=== PATIENT | male | born 1990 | race Caucasian/White ===

== ENCOUNTER 2017-11-06 14:15 | Emergency (ER) | payer OTHER ==
[2017-11-06] MEDS ORDERED: NS 0.9% 1000 ML* 1,000 ML IV ONE (14:34)
--- NOTE | 2017-11-06 14:38 | ED ---
Abdominal Pain/Male - HPI Summary HPI Summary: This is jacob Matos documenting for attending Dr. David Aldrich MD. Constipation and AOB 2 monts Has been diarrhea XR at Eating and drink everyday small smouints Nausea and vomiting Every time diarrhea for last week brown water yesterday No blood no mucous Keeps hydrated on lithium? No fevers no chills Abdominal pain yes Straying everytime go to bathroom No medical history Hand surgry Quite smoke I 8-9month Occasional drugs No etoh in a while Fhx depression Bipolar disorder, psy stuff Never been in hospital for besides psy stuff PTSD Pt says he has been constipated for 2 months and the last few days it has affected his breathing, pt referred to ED by Dieudonne rouse. 06/19 - History of Current Complaint Chief Complaint: EDShortnessOfBreath Stated Complaint: BOWEL ISSUE Time Seen by Provider: 11/06/17 14:30 Pain Intensity: 3 - Allergies/Home Medications Allergies/Adverse Reactions: Allergies Allergy/AdvReac Type Severity Reaction Status Date / Time No Known Allergies Allergy Verified 11/06/17 14:24 Home Medications: Home Medications Docusate Sodium [Colace] 100 mg PO TID 11/06/17 [History Confirmed 11/06/17] [place] Carbonate [[place] Carbonate 600 mg cap] 1,200 mg PO DAILY 11/06/17 [ History Confirmed 11/06/17] Sennosides [Ex-Lax Maximum Strength] 25 mg PO DAILY PRN 11/06/17 [History Confirmed 11/06/17] lamoTRIgine [Lamictal] 150 mg PO DAILY 11/06/17 [History Confirmed 11/06/17] PMH/Surg Hx/FS Hx/Imm Hx Infectious Disease History: No Infectious Disease History: Denies: Traveled Outside the [place] in Last 30 Days Physical Exam - Summary Physical Exam Summary: VITAL SIGNS: Reviewed. GENERAL: Patient is a well-developed and nourished male who is lying comfortable in the stretcher. Patient is not in any acute respiratory distress. HEAD AND FACE: Normocephalic and atraumatic. EYES: PERRLA, EOMI x 2, No injected conjunctiva. EARS: Hearing grossly intact. Ear canals and tympanic membranes are WNL. MOUTH: Oropharynx within normal limits. NECK: Supple, trachea is midline, no adenopathy, no JVD. CHEST: Symmetric, no tenderness at palpation LUNGS: Clear to auscultation bilaterally. No wheezing or crackles. CVS: RRR, S1 and S2 present, no murmurs or gallops appreciated. ABDOMEN: Abdomen is soft and non-tender. Abdomen is distended. Positive bowel sounds. No rebound no guarding, and no masses palpated. No abdominal bruit or pulsations. EXTREMITIES: FROM in all major joints, no edema, no cyanosis or clubbing. NEURO: Alert and oriented x 3. No acute neurological deficits. Speech is normal. SKIN: Dry and warm Triage Information Reviewed: Yes Vital Signs On Initial Exam: Initial Vitals Temp Pulse Resp BP Pulse Ox 98.6 F 68 14 149/98 100 11/06/17 14:21 11/06/17 14:21 11/06/17 14:21 11/06/17 14:21 11/06/17 14:21 Vital Signs Reviewed: Yes Diagnostics - Vital Signs Vital Signs Temp Pulse Resp BP Pulse Ox 11/06/17 14:21 98.6 F 68 14 149/98 100 - Laboratory Lab Statement: Any lab studies that have been ordered have been reviewed, and results considered in the medical decision making process.
--- NOTE | 2017-11-06 14:48 | ED ---
Shortness of Breath - HPI Summary HPI Summary: This is jacob Matos documenting for attending Dr. David Aldrich MD. A 26 y/o male presents to ED c/o constipation and SOB reaching 3/10 in severity. Additionally c/o diarrhea. According to the patient, he has been having slight constipation for the past two months, however, the last few days it has been making it difficult to breathe. He was referred to ED by (XR done at ). Patient denies any nausea, vomiting, fever, chills, however has had mild abdominal pain and diarrhea. He has had diarrhea for the past week which has no blood or mucous, however, yesterday, this stool was brown water. He noted that he keeps hydrated every day and eats in small amounts. Currently on [place]. No medical history except for hospitalization for psychiatric issues. PMHx of biopolar disorder, PTSD, and hand surgery. FHx of depression. SHx of occasional drugs, no ETOH and quit smoking 8-9 months ago. - History of Current Complaint Chief Complaint: EDShortnessOfBreath Time Seen by Provider: 11/06/17 14:30 Hx Obtained From: Patient Onset/Duration: Sudden Onset, Still Present Current Severity: Mild - 3/10 Aggrevating Factors: Nothing Alleviating Factors: Nothing Associated Signs & Symptoms: Negative - Allergy/Home Medications Allergies/Adverse Reactions: Allergies Allergy/AdvReac Type Severity Reaction Status Date / Time No Known Allergies Allergy Verified 11/06/17 14:24 Home Medications: Home Medications Docusate Sodium [Colace] 100 mg PO TID 11/06/17 [History Confirmed 11/06/17] [place] Carbonate [[place] Carbonate 600 mg cap] 1,200 mg PO DAILY 11/06/17 [ History Confirmed 11/06/17] Sennosides [Ex-Lax Maximum Strength] 25 mg PO DAILY PRN 11/06/17 [History Confirmed 11/06/17] lamoTRIgine [Lamictal] 150 mg PO DAILY 11/06/17 [History Confirmed 11/06/17] PMH/Surg Hx/FS Hx/Imm Hx Endocrine/Hematology History: Denies: Hx Diabetes Cardiovascular History: Denies: Hx Hypertension Psychiatric History: Reports: Hx Panic Disorder - RESOLVED, Hx Post Traumatic Stress Disorder, Hx Bipolar Disorder Infectious Disease History: No Infectious Disease History: Denies: Traveled Outside the [place] in Last 30 Days - Family History Known Family History: Positive: Other - Depression (father), alcoholism (mother and father). - Social History Alcohol Use: None Substance Use Type: Reports: Marijuana - Occasionally., Prescribed Smoking Status (MU): Never Smoked Tobacco Review of Systems Negative: Fever, Chills Positive: Shortness Of Breath Positive: Abdominal Pain - Mild, Diarrhea, Other - POSITIVE: Constipation. Negative: Vomiting, Nausea All Other Systems Reviewed And Are Negative: Yes Physical Exam - Summary Physical Exam Summary: VITAL SIGNS: Reviewed. GENERAL: Patient is a well-developed and nourished male who is lying comfortable in the stretcher. Patient is not in any acute respiratory distress. HEAD AND FACE: Normocephalic and atraumatic. EYES: PERRLA, EOMI x 2, No injected conjunctiva. EARS: Hearing grossly intact. Ear canals and tympanic membranes are WNL. MOUTH: Oropharynx within normal limits. NECK: Supple, trachea is midline, no adenopathy, no JVD. CHEST: Symmetric, no tenderness at palpation LUNGS: Clear to auscultation bilaterally. No wheezing or crackles. CVS: RRR, S1 and S2 present, no murmurs or gallops appreciated. ABDOMEN: Abdomen is soft and non-tender. Abdomen is distended. Positive bowel sounds. No rebound no guarding, and no masses palpated. No abdominal bruit or pulsations. EXTREMITIES: FROM in all major joints, no edema, no cyanosis or clubbing. NEURO: Alert and oriented x 3. No acute neurological deficits. Speech is normal. SKIN: Dry and warm Triage Information Reviewed: Yes Vital Signs On Initial Exam: Initial Vitals Temp Pulse Resp BP Pulse Ox 98.6 F 68 14 149/98 100 11/06/17 14:21 11/06/17 14:21 11/06/17 14:21 11/06/17 14:21 11/06/17 14:21 Vital Signs Reviewed: Yes Diagnostics - Vital Signs Vital Signs Temp Pulse Resp BP Pulse Ox 11/06/17 14:35 153/97 11/06/17 14:21 98.6 F 68 14 149/98 100 - Laboratory Result Diagrams: 11/06/17 14:49 11/06/17 14:49 Lab Statement: Any lab studies that have been ordered have been reviewed, and results considered in the medical decision making process. - CT CT A/P CT Interpretation Completed By: Radiologist - MILD GASEOUS DISTENTION. NO OBSTRUCTION. NO MASS OR INFLAMMATORY CHANGES. ED PHYSICIAN REVIEWED THIS RADIOLOGY REPORT. Course/Dx - Course Assessment/Plan: This patient is a 26-year-old male who was transferred from the [address] [place] [address] urgent care. With a chief complaint of intermittent diarrhea and constipation. The patient has been having the symptoms for approximately a month. Patient denies any abdominal pain. Patient reports that occasionally he has shortness of breath. Test results without any significant abnormality. Abdominopelvic CT impression: mild gaseous distention. No obstruction. No mass or inflammatory changes. Since the patient has remained asymptomatic. The patient was hydrated with IV fluids at this point the patient was discharged home with follow-up with primary care physician. Patient was advised to use the BRAT diet. Patient was instructed to return to the emergency department if she develops any pain, nausea vomiting or any other symptoms. - Diagnoses Provider Diagnoses: Abdominal discomfort, Diarrhea Discharge - Sign-Out/Discharge Documenting (check all that apply): Patient Departure - DISCHARGE - Discharge Plan Condition: Stable Disposition: HOME Patient Education Materials: Constipation (ED), Abdominal Pain (ED) Referrals: No Primary Care Phys,NOPCP [Primary Care Provider] - [facility] [Outside] - 1 Week Additional Instructions: FOLLOW UP WITH YOUR PRIMARY CARE PROVIDER WITHIN ONE WEEK FOR HIGH BLOOD PRESSURE NOTED TODAY. RETURN TO THE ED FOR ANY WORSENING OR NEW SYMPTOMS. - Billing Disposition and Condition Condition: STABLE Disposition: Home
[2017-11-06 14:59] LABS: ABS Basophils 0 10^3/ul (0-0.2); ABS Eosinophils 0.1 10^3/ul (0-0.6); ABS Lymphocytes 1.6 10^3/ul (1.0-4.8); ABS Monocytes 0.4 10^3/ul (0-0.8); ABS Neutrophils 3.9 10^3/ul (1.5-7.7); ABS Nucleated RBC 0 10^3/ul; Eosinophil % 1.7 % (0-6); Hematocrit 44 % (42-52); Hemoglobin 15.4 g/dl (14.0-18.0); Lymphocyte % 26.9 % (25-47); Mean Corpuscular HGB Conc 35 g/dl (31-36); Mean Corpuscular Hemoglobin 31 pg (27-31); Mean Corpuscular Volume 88 fL (80-94); Mean Platelet Volume 9.5 um3 (7.4-10.4); Nucleated Red Blood Cells % 0; Platelet Count 191 10^3/ul (150-450); Red Cell Distribution Width 12 % (10.5-15); White Blood Count 6.1 10^3/ul (3.5-10.8)
[2017-11-06 15:24] LABS: EGFR Non-African American 90.7 (>60)
[2017-11-06 16:11] LABS: Urine Appearance Clear; Urine Blood Negative (Negative); Urine Color Yellow; Urine Ketones Negative (Negative); Urine Protein Negative (Negative); Urine Specific Gravity 1.004 (1.010-1.030); Urine Urobilinogen Negative (Negative)
[2017-11-06] MEDS ORDERED: Iohexol 300* (CONTRAST) 10 ML SDV IV ONE (16:12)
--- NOTE | 2017-11-06 17:03 | RAD ---
INDICATION: Abdominal pain COMPARISON: None TECHNIQUE: Axial source images were obtained from the hemidiaphragms to the symphysis pubis following administration of oral and intravenous contrast. 116 mL Omnipaque 300 was utilized. Coronal and sagittal reconstructed images were acquired. Lung bases: The lung bases are clear. Liver: The liver is normal in size. There are no masses. There is no ductal dilatation. Gallbladder: There are no calcified gallstones. There is no evidence of wall thickening or pericholecystic fluid. Spleen: The spleen is normal in size. There are no masses. Pancreas: There is no focal pancreatic mass or ductal dilatation. Adrenal glands: There is no evidence of adrenal mass. Kidneys: The kidneys are normal in size and position. There are prompt nephrograms and there is prompt excretion bilaterally. There are no renal parenchymal masses. There is no evidence of nephrolithiasis. Adenopathy: There is no evidence of adenopathy by size criteria. Fluid collections: There are no free or localized fluid collections. Vessels:There are no significant atherosclerotic changes involving the aorta. There is no focal aneurysm. The iliac vessels are normal in caliber. The IVC appears normal. GI tract: There are no acute CT bowel findings. There is no obstruction. There is mild gaseous distention The stomach and small bowel otherwise appear normal. The lower GI tract is otherwise normal. The cecum, ileocecal valve, and terminal ileum appear normal. The appendix is visualized and appear normal. Pelvic organs: The prostate and seminal vesicles appear normal Bladder: There are no bladder masses. Abdominal and pelvic soft tissues: The extraperitoneal abdominal and pelvic soft tissues appear normal.. Osseous structures: There are no acute osseous findings. Other: None IMPRESSION: MILD GASEOUS DISTENTION. NO OBSTRUCTION. NO MASS OR INFLAMMATORY CHANGES
[2017-11-06 18:38] VITALS: BP 135/83
== END 2017-11-06 18:45 | disposition home or self-care (01) ==
LOC: ED 14:15
DX: R10.9 Unspecified abdominal pain (principal); R19.7 Diarrhea, unspecified; K59.00 Constipation, unspecified; R06.02 Shortness of breath
CPT/HCPCS: 36415; 74177; 80053; 81003; 83605; 83690; 83735; 85025; 86140; 96360; 99283; Q9967